=== PATIENT | female | born 1955 | race Asian ===

== ENCOUNTER 2019-03-22 16:50 | Emergency (ER) | payer OTHER, SELFPAY ==
[2019-03-22 16:55] VITALS: BP 134/97; PULSE 71; RESP 16; TEMP 36.6; O2SAT 99
--- NOTE | 2019-03-22 17:05 | W.ED.GENAD ---
Discharge Plan Disposition Patient Disposition: HOME Condition: Improving Discharge Details Chief Complaint: RashLesion Clinical Impression: Shingles Primary Care Provider: Catalina Rivera ED Provider: Haroldo Garcia Home Meds and New Rx's Prescriptions: New valacyclovir 1 gram tablet 1,000 mg PO TID Qty: 20 RF: 0 Continued protandim PO DAILY RF: 0 cholecalciferol (vitamin D3) 5,000 unit capsule 5,000 unit PO DAILY Qty: 90 RF: 0 Discharge Instructions Instructions: Shingles (ED) Additional Instructions: Take the antiviral medication three times a day. RETURN TO THE ER IMMEDIATELY IF YOU DEVELOP ANY FEVERS, WEAKNESS, OR FOR ANY OTHER CONCERNING OR WORSENING SYMPTOMS AT ALL. Medical Decision Making 63-year-old female presents to the emergency department with a vesicular rash on her posterior thigh. This is most consistent with shingles. She will be started on valacyclovir. She was given return precautions and discharge instructions and agrees with the outpatient treatment plan. HPI This patient is a 63-year-old female presents to the emergency department with chief complaint of a rash on her right leg. She noticed it today. Yesterday she noticed some pain in her right posterior lower thigh. No fevers. No other recent illness. The pain is better since she covered it up. However, the rash then presented. She has had shingles in the past. She states it feels similar. General Date/Time Provider Initiated Documentation: 03/22/19 17:04. Related Data Home Medications Medication Instructions Recorded Confirmed cholecalciferol (vitamin D3) 5,000 5,000 unit PO DAILY #90 cap 12/24/18 03/22/19 unit capsule protandim PO DAILY 12/24/18 valacyclovir 1,000 mg PO TID #20 tab 03/22/19 Previous Rx's Medication Instructions Recorded cholecalciferol (vitamin D3) 5,000 5,000 unit PO DAILY #90 cap 12/24/18 unit capsule valacyclovir 1,000 mg PO TID #20 tab 03/22/19 Allergies Allergy/AdvReac Type Severity Reaction Status Date / Time Bleach (Sodium Hypochlorite) Allergy Unknown Unverified 03/22/19 16:57 ciprofloxacin Allergy Unknown Verified 03/22/19 16:57 lisinopril Allergy Unknown Unverified 03/22/19 16:57 lactose AdvReac Unknown Unverified 03/22/19 16:57 General Stated Complaint: RashLesion MICHI: 4 Review of Systems Narrative: Denies any other recent illness or fever. [facility] Medical History Adjustment disorder (Acute) Atrophic vaginitis (Acute) CTS (carpal tunnel syndrome) (Acute) Diabetes mellitus, type II (Chronic) DJD (degenerative joint disease) (Chronic) Essential hypertension (Acute) Female climacteric state (Acute) Mixed hyperlipidemia (Acute) Pure hypercholesterolemia (Acute) Thrombosed external hemorrhoids (Acute) Vitamin D deficiency (Acute) Surgical History History of breast biopsy (Acute) History of cholecystectomy (Chronic) History of dilation and curettage (Acute) History of removal of cyst (Acute) Right Breast x2 Family History Father Heart attack Asthma Diabetes Mother Stroke Hypertension Rheumatoid arthritis Son Asthma only as child Son No problems noted. Brother Heart attack Brother Diabetes Asthma Sister Breast cancer Sister Brain cancer Sister Leukemia Sister Hypertension Hyperlipidemia Social History Smoking/Tobacco Use Status: Never Alcohol Intake: never Drug use: Never Adopted: No Caregiver/Support person: No Foster care: No Household members: friend(s) Housing: other Details: trailer Number of Children: 2 Communication Needs: Corrective Lenses Education Level: college current occupation: RN [employer] What is your relationship status?: Panel score (0-1 are the most socially isolated patients): 1 What type of physical activity do you participate in: aerobic and swimming Frequency: 1-2 times per week Seatbelt use: always Helmet use: Yes Drive intox or ride w/intox bellman driver: No Working smoke detector in home: Yes Fire extinguisher in home: Yes Carbon monox detector in home: Yes Do you feel safe in your relationship?: Yes Victim of physical abuse: No Victim of emotional abuse: No Victim of sexual abuse: No Exam Narrative Exam Narrative: Gen: no acute distress, alert. Lung: no respiratory distress. Neuro: speech normal, no gross motor deficits. Psych: alert and oriented to person, place time, normal affect. Skin: on the posterior thigh, lower, there is a vesicular rash about 2.5 cm in diameter.. Course Vital Signs Vital signs: Vital Signs Temperature 36.6 C 03/22/19 16:55 Pulse 71 03/22/19 16:55 Respiratory Rate 16 03/22/19 16:55 Blood Pressure 134/97 H 03/22/19 16:55 Pulse Oximetry 99 03/22/19 16:55 Temperature 36.6 C 03/22/19 16:55 Temperature Source Skin 03/22/19 16:55 Pulse 71 03/22/19 16:55 Respiratory Rate 16 03/22/19 16:55 Respiratory Effort Non-Labored 03/22/19 16:55 Blood Pressure 134/97 H 03/22/19 16:55 Blood Pressure Position Sitting 03/22/19 16:55 Pulse Oximetry 99 03/22/19 16:55 Oxygen Delivery Method Room Air 03/22/19 16:55 Oxygen Flow Rate 0 03/22/19 16:55 Pain Level 5 03/22/19 16:55
[2019-03-22] MEDS: valACYclovir 500 MG TAB 2000 MG PO (17:17)
== END 2019-03-22 17:21 | disposition home or self-care (01) ==
PROVIDERS: Emergency Provider Emergency Medicine; PCP Student in an Organized Health Care Education/Training Program
DX: B02.9 Zoster without complications (principal); E11.9 Type 2 diabetes mellitus without complications; I10 Essential (primary) hypertension
CPT/HCPCS: 99283

== ENCOUNTER 2019-07-02 10:39 | Outpatient (CLI) | payer OTHER, SELFPAY ==
[2019-07-02 11:15] LABS: HCT 42.6 % (36.0-46.0); HGB 13.8 g/dL (12.0-15.5); Mean Corp. HGB Concentration 32.4 g/dL (32.0-36.0); Mean Corpuscular Hemoglobin 30.2 pg (27.0-33.0); Mean Corpuscular Volume 93.2 fL (80-95); Platelet Count 291 x1000/uL (130-400); RBC 4.57 m/cumm (4.00-5.20); RBC Distribution Width 12.6 % (11.7-14.6); White Blood Cell Count 6.03 k/cumm (4.4-10.8)
[2019-07-02 12:17] LABS: ALT 33 U/L (14-59); AST 18 U/L (15-37); Albumin 3.5 g/dL (3.4-5.0); Alkaline Phosphatase 60 U/L (46-116); Anion Gap 8.2 mmol/L (3-11); BUN 16 mg/dL (7-18); Bilirubin, Total 0.8 mg/dL (0.2-1.0); CO2 29.8 mmol/L (21.0-32.0); Calcium 8.9 mg/dL (8.5-10.1); Calculated LDL 162 mg/dL (<100); Chloride 106 mmol/L (98-107); Cholesterol 223 mg/dL (<200); Glucose 127 mg/dL (74-106); HDL Cholesterol 42 mg/dL (40-60); Sodium 144 mmol/L (136-145); TSH (W/Ref FT4) 1.26 uIU/mL (0.36-3.74); Total Protein 7.1 g/dL (6.4-8.2); Triglyceride 97 mg/dL (<150)
== END 2019-07-02 10:59 ==
PROVIDERS: PCP Student in an Organized Health Care Education/Training Program; Visit Provider Student in an Organized Health Care Education/Training Program
DX: E11.9 Type 2 diabetes mellitus without complications (principal); I10 Essential (primary) hypertension; R53.83 Other fatigue; F32.9 Major depressive disorder, single episode, unspecified; Z13.220 Encounter for screening for lipoid disorders; Z80.6 Family history of leukemia
CPT/HCPCS: 36415; 80053; 80061; 85027; 84443

== ENCOUNTER 2019-07-14 11:03 | Outpatient (REF) | payer OTHER, SELFPAY ==
--- NOTE | 2019-07-13 10:00 | PAPFT_PTH ---
PATIENT: Nina Gregg LOC: [facility] U#:[id number] AGE/SX: 63/F ROOM: RE07/14/[address]: Shiela Oneill : 1955 BED: DIS: 07/14/2019 SPEC #: [id number] RECD: 07/14/19 12:49 STATUS: ANGEL REKervin #: [id number] EAMON: 07/13/19 10:[address]: Shiela Oneill DEPT: [facility] Cytology RECD BY: Quyen Duffy ENTERED: 07/14/19 12:50 SP TYPE: PAPFT OTHR DR: Catalina Rivera, Tissues: 1 - CX/ENDOCX FOR PAP SMEARS Procedures: PAP THIN PREP/UVM Screening HPV DNA PROBE Comments: [id number]
== END 2019-07-14 11:23 ==
LOC: LBN 11:03
PROVIDERS: PCP Student in an Organized Health Care Education/Training Program; Visit Provider Obstetrics & Gynecology Gynecology
DX: Z12.4 Encounter for screening for malignant neoplasm of cervix (principal); Z11.51 Encounter for screening for human papillomavirus (HPV)
CPT/HCPCS: 88142; 87624

== ENCOUNTER 2019-07-23 14:28 | Outpatient (REF) | payer OTHER, SELFPAY ==
[2019-07-23 17:44] LABS: Bilirubin Negative (Negative); Blood Small (Negative); Clarity Clear (Clear); Glucose 250 mg/dL (Negative); Ketones Negative (Negative); Leukocyte Esterase Negative (Negative); Nitrite Negative (Negative); Specific Gravity 1.025 (1.005-1.025); Urobilinogen 0.2 EU/dL (Up TO 0.2); pH 5.5 (5-8)
[2019-07-23 18:04] LABS: Bacteria Few HPF (Negative); C & S Indicated? No/Sq. Contamination; Casts Negative LPF (Negative); Crystals Negative HPF (Negative); Epithelial Cells Moderate HPF (Negative); Mucus Negative (Negative); RBC Negative HPF (0-2); WBC Negative HPF (0-5)
== END 2019-07-23 14:48 ==
LOC: LBN 14:28
PROVIDERS: PCP Student in an Organized Health Care Education/Training Program; Visit Provider Nurse Practitioner Gerontology
DX: R32 Unspecified urinary incontinence (principal)
CPT/HCPCS: 81003; 81015

== ENCOUNTER 2019-08-05 02:13 | Outpatient (CLI) | payer OTHER, SELFPAY ==
--- NOTE | 2019-08-05 12:30 | DI.CT_ITS ---
EXAM: CT ABDOMEN PELVIS WO/W CLINICAL HISTORY: microscopic hem and flank pain COMPARISON: No exams were available for comparison FINDINGS: CT examination of the abdomen and pelvis was performed utilizing CT urogram protocol. Patient reporte lupe has a history of microscopic hematuria and flank pain. Noncontrast CT shows tiny nonobstructing left renal calculus. Images obtained through the lung bases are unremarkable. There is a peripheral nodular enhancing lesi on of right hepatic lobe near the dome of the liver measuring up to about 16 millimeters in diameter and this has the appearance of a hemangioma. Note is also made of a slightly heterogeneous, well-circ umscribed mass of the inferior medial portion of the right hepatic lobe measuring up to about 14 mill imeters in diameter, this shows intermediate attenuation of roughly 35 Hounsfield units and does not appear to enhance significantly. Findings as described are indeterminate, solid hepatic neoplasm not excluded. Findings are not suggestive of hemangioma. Additional evaluation with hepatic protocol MRI recommended for further evaluation. Spleen is unremarkable in appearance. Pancreas appears normal. Gallbladder appears to have been surgi marlin removed. No biliary dilatation. No abdominal or pelvic adenopathy. Small fat containing umbilic al hernia noted. No focal bowel pathology. Prior tubal ligations noted, otherwise arbor end mainspring former structures appe ar intact. Unremarkable appearance of the appendix. No evidence of diverticulitis. Abdominal aorta is of normal diameter and major aortic branches appear intact. Contrast-enhanced imaging shows symmetrical cortical renal enhancement. No evidence of hydronephrosis , ureteral calcification or abnormality of the urinary bladder which is essentially collapsed. IMPRESSION: 1. Incidental finding of indeterminate 14 millimeter right hepatic lobe mass, hepatic protocol MRI r ecommended. 2. Non-obstructing left renal calculus. No other specific abnormality involving the urinary tract.
[2019-08-05] MEDS: Omnipaque 350 MG/ML 100 ML BTL IJ (13:30)
== END 2019-08-05 02:33 ==
PROVIDERS: PCP Student in an Organized Health Care Education/Training Program; Visit Provider Nurse Practitioner Gerontology
DX: R31.29 Other microscopic hematuria (principal); R10.32 Left lower quadrant pain; K76.89 Other specified diseases of liver; N20.0 Calculus of kidney; K42.9 Umbilical hernia without obstruction or gangrene
CPT/HCPCS: 74178; J3490

== ENCOUNTER 2019-08-13 01:05 | Outpatient (CLI) | payer OTHER, SELFPAY ==
--- NOTE | 2019-08-13 | DI.US_ITS ---
EXAM: MG MAMMO DIAGNOSTIC BI and U/S left breast CLINICAL HISTORY: LT LATERAL BREAST 1 CM FIRM MOBILE NODULE. COMPARISON: Priors available for comparison. TECHNIQUE: Craniocaudal and mediolateral oblique Full Field Digital Mammography views of the bilater al breast with Computer Aided Diagnosis followed by Tomosynthesis and left breast ultrasound. FINDINGS: Mammography/Tomosynthesis: Masses/Architectural Distortion: No suspicious nodules present. Stable nodular densities in the oute r left breast. Microcalcifications: No suspicious pleomorphic-type are seen. Skin Thickening/Nipple Retraction: None. Left breast US: Echotexture: Normal appearance of the glandular tissue. Shadowing: No suspicious foci. Cyst: None. Solid lesions: 2 small lymph nodes seen in the 3 o'clock position of the left breast. They measure 6 x 3 x 5 mm and 4 x 3 x 3 mm. No suspicious solid lesions are identified sonographically. Ductal dilation: None. IMPRESSION: 1. No evidence of malignancy is noted. 2. Unless there is more urgent need, follow-up screening mammography is recommended, as per [place] [employer] guidelines. BI-RADS Cat 2 - Benign Findings Breast Density - Category C - Heterogeneously dense The findings were discussed with the patient on the date of the examination. The mammogram demonstrates the patient's breast tissue is dense. Dense breast tissue is very common a nd is not abnormal but dense breast tissue can make it harder to find cancer on a mammogram. Also, de nse breast tissue may increase their breast cancer risk. This information about the result of the [facility] mogram report was provided to the patient to raise their awareness. Use this report when you speak wi th the patient about their risks for breast cancer, which includes their family history. At that time , you may recommend for more screening tests (Ultrasound or MRI) as they might be useful based on the ir risk. A negative radiographic report should not delay biopsy if a dominant or clinically suspicious mass is present. Up to ten percent of cancers are not identified on mammography. A negative report may reinforce clinical impression. Adenosis and dense breasts may obscure an underlying neoplasm. False positive reports average 6 to 10%. Patient will receive a letter notifying them of these results.
== END 2019-08-13 01:25 ==
PROVIDERS: PCP Student in an Organized Health Care Education/Training Program; Visit Provider Obstetrics & Gynecology Gynecology
DX: R59.0 Localized enlarged lymph nodes; N63.21 Unspecified lump in the left breast, upper outer quadrant
CPT/HCPCS: 76642; 77062; 77066; G0279

== ENCOUNTER 2019-08-28 02:01 | Outpatient (CLI) | payer OTHER, SELFPAY ==
--- NOTE | 2019-08-28 06:22 | DI.MRI_ITS ---
EXAM: MR ABDOMEN WO/W CLINICAL HISTORY: hepatic lesion, k76.9. TECHNIQUE: Multiplanar multisequence MRI was performed. COMPARISON: CT ABDOMEN PELVIS WO/W from 08/05/2019 FINDINGS: MR examination of the upper abdomen was performed utilizing pre and post contrast imaging including m ulti phasic post contrast vibe imaging. Kidneys are unremarkable in appearance. Pancreas shows normal appearance. No biliary dilatation. S pleen appears normal. No retroperitoneal adenopathy. Adrenals appear normal. Recent CT showed a 16 millimeter in diameter mass of the right hepatic lobe at the dome of the liver consistent with hemangioma. CT also showed a 14 millimeter in diameter right lobe hepatic mass infer iorly adjacent to the kidney. This showed intermediate attenuation and neoplastic disease was not ex cluded on the basis of the CT. On today's examination, the 16 millimeter in diameter lesion of the dome of the liver shows character istic high signal on T2 weighted imaging and early filling with no washout on contrast enhanced scans . There is a 11 millimeter in diameter high signal lesion also seen with early enhancement located enma cent to the IVC in the right hepatic lobe which was not seen on CT. Enhancement characteristics are consistent with hemangioma. The 14 millimeter in diameter indeterminate lesion is of very high signal on T2 weighted images. Thi s shows no enhancement on post contrast imaging, multiphasic. This may represent hemorrhagic hepatic cyst. Neoplastic disease unlikely. IMPRESSION: Findings as described above are consistent with benign disease for multiple hepatic lesions as descri bed. Follow-up hepatic CT recommended in 6-12 months to document stability of the 14 millimeter infe rior right lobe hepatic lesion. DATA REPOSITORY:
[2019-08-28] MEDS: Normal Saline Flush 10 ML SYR IVP (08:23)
[2019-08-28] MEDS: Gadoterate meglumine 20 ML VIAL 13 ML IVP (08:25)
== END 2019-08-28 02:21 ==
PROVIDERS: PCP Student in an Organized Health Care Education/Training Program; Visit Provider Student in an Organized Health Care Education/Training Program
DX: K76.89 Other specified diseases of liver (principal); D18.03 Hemangioma of intra-abdominal structures
CPT/HCPCS: 74183

== ENCOUNTER 2019-10-20 05:16 | Outpatient (CLI) | payer OTHER, SELFPAY ==
[2019-10-20 11:43] LABS: Anion Gap 3.7 mmol/L (3-11); BUN 14 mg/dL (7-18); CO2 31.3 mmol/L (21.0-32.0); CREATININE 0.81 mg/dL (0.55-1.02); Calcium 8.7 mg/dL (8.5-10.1); Chloride 105 mmol/L (98-107); Glucose 123 mg/dL (74-106); Potassium 3.9 mmol/L (3.5-5.1); Sodium 140 mmol/L (136-145)
[2019-10-22 05:04] LABS: Vitamin D 25 Total 42.5 ng/ml (30-100)
== END 2019-10-20 05:36 ==
PROVIDERS: PCP Student in an Organized Health Care Education/Training Program; Visit Provider Student in an Organized Health Care Education/Training Program
DX: I10 Essential (primary) hypertension (principal); E11.9 Type 2 diabetes mellitus without complications; E55.9 Vitamin D deficiency, unspecified
CPT/HCPCS: 36415; 80048; 82306

== ENCOUNTER 2020-02-02 03:31 | Outpatient (CLI) | payer OTHER, SELFPAY ==
[2020-02-02 12:04] LABS: Anion Gap 4.4 mmol/L (3-11); BUN 14 mg/dL (7-18); CO2 31.6 mmol/L (21.0-32.0); CREATININE 0.77 mg/dL (0.55-1.02); Calcium 9.4 mg/dL (8.5-10.1); Calculated LDL 152 mg/dL (<100); Chloride 105 mmol/L (98-107); Cholesterol 223 mg/dL (<200); Glucose 112 mg/dL (74-106); HDL Cholesterol 44 mg/dL (40-60); Magnesium 2.1 mg/dL (1.8-2.4); Potassium 4.1 mmol/L (3.5-5.1); Sodium 141 mmol/L (136-145); Triglyceride 138 mg/dL (<150)
[2020-02-04 05:39] LABS: Vitamin D 25 Total 41.3 ng/ml (30-100)
== END 2020-02-02 03:51 ==
PROVIDERS: PCP Student in an Organized Health Care Education/Training Program; Visit Provider Student in an Organized Health Care Education/Training Program
DX: I10 Essential (primary) hypertension (principal); E55.9 Vitamin D deficiency, unspecified; E11.9 Type 2 diabetes mellitus without complications; E86.0 Dehydration
CPT/HCPCS: 36415; 80048; 80061; 82306; 83735

== ENCOUNTER 2020-08-01 19:47 | Outpatient (REF) | payer OTHER, SELFPAY ==
[2020-08-01 21:11] LABS: Bilirubin Negative (Negative); Blood Small (Negative); Clarity Clear (Clear); Glucose Negative (Negative); Ketones Negative (Negative); Leukocyte Esterase Negative (Negative); Nitrite Negative (Negative); Specific Gravity >= 1.030 (1.005-1.025); Urobilinogen 0.2 EU/dL (Up TO 0.2); pH 5.5 (5-8)
[2020-08-01 21:18] LABS: Epithelial Cells Rare HPF (Negative); WBC Negative HPF (0-5)
[2020-08-01 21:19] LABS: Bacteria Negative HPF (Negative); C & S Indicated? No; Casts Negative LPF (Negative); Crystals Negative HPF (Negative); Mucus Trace (Negative)
== END 2020-08-01 19:48 | disposition home or self-care (01) ==
LOC: LBN 19:47
PROVIDERS: PCP Student in an Organized Health Care Education/Training Program; Visit Provider Student in an Organized Health Care Education/Training Program
DX: R35.0 Frequency of micturition (principal)
CPT/HCPCS: 81003; 81015

== ENCOUNTER 2020-08-12 09:23 | Outpatient (CLI) | payer OTHER, SELFPAY ==
[2020-08-13 13:24] LABS: COVID-19 RT-PCR UVMMC Result Negative (Negative)
== END 2020-08-12 09:24 | disposition home or self-care (01) ==
LOC: LBO 09:25
PROVIDERS: PCP Student in an Organized Health Care Education/Training Program; Visit Provider Family Medicine
DX: Z20.822 Contact with and (suspected) exposure to COVID-19 (principal)
CPT/HCPCS: U0003

== ENCOUNTER 2021-02-20 04:03 | Outpatient (REF) | payer SELFPAY ==
[2021-02-20 12:32] LABS: Anion Gap 2.8 mmol/L (3-11); BUN 13 mg/dL (7-18); CO2 33.2 mmol/L (21.0-32.0); CREATININE 0.8 mg/dL (0.55-1.02); Calcium 8.5 mg/dL (8.5-10.1); Chloride 108 mmol/L (98-107); Glucose 135 mg/dL (74-106); Potassium 4.4 mmol/L (3.5-5.1); Sodium 144 mmol/L (136-145)
[2021-02-21 10:58] LABS: Varicella IgG Antibody Positive (See Note)
[2021-02-21 11:03] LABS: Measles IgG Antibody Positive (See Note); Mumps Antibody IgG Positive (See Note); Rubella IgG Ab (UVM) Positive (See Note)
[2021-02-22 13:48] LABS: TB Interpretation Positive (Negative); TB1 Ag minus Nil 0.43 IU/ml; TB2 Ag minus Nil 0.44 IU/mL
== END 2021-02-20 04:04 | disposition home or self-care (01) ==
LOC: LBO 04:03
PROVIDERS: Nurse Practitioner Family; PCP Student in an Organized Health Care Education/Training Program; Visit Provider Student in an Organized Health Care Education/Training Program
DX: Z02.1 Encounter for pre-employment examination; Z79.1 Long term (current) use of non-steroidal anti-inflammatories (NSAID)
CPT/HCPCS: 36415; 80048; 86787; 86480; 86735; 86762; 86765

== ENCOUNTER 2021-03-01 02:19 | Outpatient (CLI) | payer OTHER, SELFPAY ==
--- NOTE | 2021-03-01 09:30 | DI.RAD_ITS ---
Exam(s) XR CHEST 2V PA LATERAL EXAM: XR CHEST 2V PA LATERAL CLINICAL HISTORY: positive Quanteferon,R76.12. TECHNIQUE: 2D digital imaging was performed. COMPARISON: No exams were available for comparison FINDINGS: Heart size is normal. The mediastinum is not widened. Right lung is clear. There is platelike atelectasis in the left infrahilar region. No pleural effusions. No pulmonary edema. No pneumothorax. IMPRESSION: There is subsegmental platelike atelectasis in the left infrahilar region. No other pulmonary findin gs and no pleural effusions. DATA REPOSITORY: RADIATION DOSE DELIVERED:
== END 2021-03-01 02:39 ==
PROVIDERS: PCP Student in an Organized Health Care Education/Training Program; Visit Provider Nurse Practitioner Family
DX: R76.12 Nonspecific reaction to cell mediated immunity measurement of gamma interferon antigen response without active tuberculosis (principal); J98.11 Atelectasis
CPT/HCPCS: 71046

== ENCOUNTER 2021-03-15 04:46 | Outpatient (CLI) | payer OTHER, SELFPAY ==
[2021-03-16 11:05] LABS: Syphilis Serology (RPR) Negative (Negative)
[2021-03-16 15:25] LABS: Chlamydia Result Negative (Negative); GC Result Negative (Negative)
== END 2021-03-15 04:47 | disposition home or self-care (01) ==
LOC: LBO 04:46
PROVIDERS: PCP Student in an Organized Health Care Education/Training Program; Visit Provider Student in an Organized Health Care Education/Training Program
DX: Z11.3 Encounter for screening for infections with a predominantly sexual mode of transmission (principal)
CPT/HCPCS: 36415; 87491; 87591; 86592

== ENCOUNTER 2021-04-27 15:07 | Outpatient (REF) | payer OTHER, SELFPAY ==
[2021-04-27 17:29] LABS: Bilirubin Negative (Negative); Blood Small (Negative); Clarity Clear (Clear); Glucose 100 mg/dL (Negative); Ketones Negative (Negative); Leukocyte Esterase Negative (Negative); Nitrite Negative (Negative); Specific Gravity 1.025 (1.005-1.025); Urobilinogen 0.2 EU/dL (Up TO 0.2)
[2021-04-27 17:36] LABS: Bacteria Few HPF (Negative); Crystals Negative HPF (Negative); Epithelial Cells Moderate HPF (Negative)
[2021-04-27 17:37] LABS: C & S Indicated? No/Sq. Contamination; Mucus Negative (Negative)
== END 2021-04-27 15:08 | disposition home or self-care (01) ==
LOC: LBN 15:07
PROVIDERS: PCP Student in an Organized Health Care Education/Training Program; Visit Provider Nurse Practitioner Gerontology
DX: R30.0 Dysuria (principal)
CPT/HCPCS: 81003; 81015; 87086

== ENCOUNTER 2021-08-05 09:31 | Outpatient (REF) | payer OTHER, SELFPAY ==
[2021-08-05 09:44] LABS: Abs Immature Grans 0.05 10^3/uL (0.0-0.06); Absolute Basophil Count 0.02 10^3/uL (0.0-0.2); Absolute Eosinophil Count 0.24 10^3/uL (0.0-0.7); Absolute Lymphocyte Count 2.28 10^3/uL (1.2-3.4); Absolute Monocyte Count 0.51 10^3/uL (0.1-0.8); Absolute Neutrophil Count 2.07 10^3/uL (1.2-6.7); Basophils % 0.4; Eosinophils % 4.6; HCT 43.6 % (36.0-46.0); HGB 13.7 g/dL (11.2-15.7); Lymphocytes % 44.1; MCH 29.5 pg (27.0-33.0); MCHC 31.4 % (32.0-36.0); MPV 9.2 fL (8.0-11.0); Monocytes % 9.9; Nucleated RBC 0 %; Platelet Count 237 10^3/uL (130-400); RBC 4.64 10^6/uL (3.93-5.22); RDW 12.3 % (11.7-14.6); RDW-SD 42.5 fL; WBC 5.17 10^3/uL (4.4-10.8)
[2021-08-05 09:56] LABS: Hemoglobin A1C 7.5 % (<5.7)
[2021-08-05 10:04] LABS: ALT 46 U/L (14-59); AST 26 U/L (15-37); Albumin 3.3 g/dL (3.4-5.0); Alkaline Phosphatase 73 U/L (46-116); BUN 10 mg/dL (7-18); Bilirubin, Total 0.4 mg/dL (0.2-1.0); CO2 29.8 mmol/L (21.0-32.0); CREATININE 0.8 mg/dL (0.55-1.02); Calcium 8.3 mg/dL (8.5-10.1); Glucose 133 mg/dL (74-106); Total Protein 7.6 g/dL (6.4-8.2)
[2021-08-05 10:34] LABS: Calculated LDL 132 mg/dL (<100); Cholesterol 192 mg/dL (<200); HDL Cholesterol 40 mg/dL (40-60); Triglyceride 104 mg/dL (<150)
[2021-08-05 12:17] LABS: Sodium 142 mmol/L (136-145)
[2021-08-05 12:18] LABS: Anion Gap 6.2 mmol/L (3-11); Chloride 106 mmol/L (98-107); Potassium 3.8 mmol/L (3.5-5.1)
== END 2021-08-05 09:32 | disposition home or self-care (01) ==
LOC: LBO 09:31
PROVIDERS: PCP Student in an Organized Health Care Education/Training Program; Visit Provider Student in an Organized Health Care Education/Training Program
DX: E11.9 Type 2 diabetes mellitus without complications (principal); E78.2 Mixed hyperlipidemia; K76.9 Liver disease, unspecified; Z11.59 Encounter for screening for other viral diseases
CPT/HCPCS: 36415; 80053; 80061; 83036; 85025

== ENCOUNTER 2021-08-05 10:37 | Emergency (ER) | payer OTHER, SELFPAY ==
[2021-08-05 10:43] VITALS: BP 141/86; PULSE 67; RESP 16; TEMP 36.2; O2SAT 100
[2021-08-05 11:04] VITALS: RESP 16
[2021-08-05 11:11] LABS: Abs Immature Grans 0.06 10^3/uL (0.0-0.06); Absolute Basophil Count 0.02 10^3/uL (0.0-0.2); Absolute Eosinophil Count 0.31 10^3/uL (0.0-0.7); Absolute Lymphocyte Count 2.33 10^3/uL (1.2-3.4); Absolute Monocyte Count 0.56 10^3/uL (0.1-0.8); Absolute Neutrophil Count 2.16 10^3/uL (1.2-6.7); Basophils % 0.4; Eosinophils % 5.7; HGB 14.2 g/dL (11.2-15.7); Immature Grans % 1.1; Lymphocytes % 42.8; MCH 29.1 pg (27.0-33.0); MCHC 31.6 % (32.0-36.0); MCV 92.2 fL (80-95); MPV 9.6 fL (8.0-11.0); Monocytes % 10.3; Neutrophils % 39.7; Nucleated RBC 0 %; Platelet Count 240 10^3/uL (130-400); RBC 4.88 10^6/uL (3.93-5.22); RDW 12.4 % (11.7-14.6); RDW-SD 41.8 fL; WBC 5.44 10^3/uL (4.4-10.8)
[2021-08-05 11:51] LABS: ALT 46 U/L (14-59); AST 25 U/L (15-37); Albumin 3.1 g/dL (3.4-5.0); Alkaline Phosphatase 69 U/L (46-116); Anion Gap 5.9 mmol/L (3-11); BUN 10 mg/dL (7-18); Bilirubin, Total 0.4 mg/dL (0.2-1.0); CO2 29.1 mmol/L (21.0-32.0); CREATININE 0.8 mg/dL (0.55-1.02); Calcium 8.3 mg/dL (8.5-10.1); Chloride 108 mmol/L (98-107); Glucose 125 mg/dL (74-106); Potassium 3.7 mmol/L (3.5-5.1); Sodium 143 mmol/L (136-145); Total Protein 7.3 g/dL (6.4-8.2)
--- NOTE | 2021-08-05 12:01 | W.ED.GENAD ---
Discharge Plan Disposition Patient Disposition: HOME Condition: Improving Discharge Details Chief Complaint: GenMedical Clinical Impression: COVID-19 Primary Care Provider: Catalina Rivera ED Provider: Nolan Pederson Home Meds and New Rx's Prescriptions: No Action protandim 1 tab PO DAILY 0RF Rx Instructions: supplement - antioxidant. hydrocortisone [Proctosol HC] 2.5 % cream with perineal applicator 1 applic DC BID-QID PRN (Reason: hemorrhoids) Qty: 28 1RF hydrocortisone acetate 25 mg suppository 25 mg DC BID Qty: 24 2RF loratadine [Claritin Liqui-Gel] 10 mg capsule 10 mg PO DAILY Qty: 90 0RF Hold Instructions: Home Medication placed on hold at Doctor's office (DME) glucometer Qty: 1 0RF Rx Instructions: Test BG QID ([facility]) OneTouch Verio test strips Strip See Rx Instructions .ROUTE .MEDSUPPLY Qty: 300 3RF Rx Instructions: As directed, for A1C goal< 7, E11.65 ([facility]) lancets Misc See Rx Instructions .ROUTE .MEDSUPPLY Qty: 300 3RF Rx Instructions: As directed to check blood glucose four times daily. No insulin. Dispense covered brand. cholecalciferol (vitamin D3) 125 mcg (5,000 unit) capsule 5,000 unit PO DAILY Qty: 90 3RF albuterol sulfate [ProAir HFA] 90 mcg/actuation HFA aerosol inhaler 2 puff inhalation Q6H PRN (Reason: shortness of breath or wheezing) Qty: 8.5 1RF Rx Instructions: Trial daily x 2 weeks metformin 500 mg tablet extended release 24 hr 500 mg PO DAILY Qty: 90 3RF Rx Instructions: Continue, take with meal Paxlovid (EUA) 300 mg (150 mg x 2)-100 mg tablet See Rx Instructions PO .COMPLEX Qty: 15 0RF Rx Instructions: take TWO 150 mg tablets of nirmatrelvir with ONE 100 mg tablet of ritonavir twice daily for 5 days PO acetaminophen 500 mg Tablet 500 mg PO Q6H PRN0RF Discharge Instructions Instructions: COVID-19 (Coronavirus Disease 2019) (ED) Additional Instructions: Please take medication as instructed. Return to the emergency department for any worsening symptoms such as trouble breathing inability to tolerate food uncontrolled diarrhea or other abnormal symptom. Be seen by your primary care doctor as scheduled. Medical Decision Making 65-year-old female history of diabetes, Covid positive yesterday present referred in for reevaluation of electrolytes given electrolyte derangements found on outpatient labs. High clinical suspicion for lab error given reported sodium of 70. Patient is neurologically intact resting comfortably no respiratory distress. Endorses that her breathing symptoms are improving and her diarrhea is also improving. Have sent screening labs including CBC and CMP. If electrolytes are normal will coordinate paxlovid therapy through pharmacy. Likely discharge home. Repeat labs performed here in the emergency department show normal electrolytes. Lab reports that the outpatient labs were a lab error. Pharmacy has come to deliver and educate patient regarding her Paxlovid. Stable for discharge home. Home care instructions and return precautions given HPI General Date/Time Provider Initiated Documentation: 08/05/21 10:39. HPI Narrative: 65-year-old female history of diabetes recently diagnosed with Covid yesterday, referred in by her primary care physician as outpatient labs showed derangement of her electrolytes, patient currently resting comfortably endorses improving shortness of breath and resolving diarrhea. Primary care physician has arranged Paxlovid prescription pending normal blood test Related Data Home Medications Medication Instructions Recorded Confirmed loratadine 10 mg capsule (Claritin 10 mg PO DAILY #90 cap 08/12/19 08/05/21 Liqui-Gel) hydrocortisone 2.5 % topical cream 1 applic DC BID-QID PRN #28 gm 09/24/19 08/05/21 with perineal applicator (Proctosol HC) hydrocortisone acetate 25 mg 25 mg DC BID #24 each 09/24/19 08/05/21 rectal suppository glucometer #1 ea 01/22/20 04/14/21 protandim 1 tab PO DAILY 01/22/20 08/05/21 metformin 500 mg tablet,extended 500 mg PO DAILY #90 tab 02/03/20 08/05/21 release 24 hr albuterol sulfate 90 mcg/actuation 2 puff INHALATION Q6H PRN #8.5 g 04/14/21 08/05/21 aerosol inhaler (ProAir HFA) blood sugar diagnostic (OneTouch #300 ea 04/14/21 04/14/21 Verio test strips) cholecalciferol (vitamin D3) 125 5,000 unit PO DAILY #90 cap 04/14/21 08/05/21 mcg (5,000 unit) capsule lancets #300 ea 04/14/21 04/14/21 nirmatrelvir 300 mg (150 mg x See Rx Instructions PO .COMPLEX 08/04/21 08/05/21 2)-ritonavir 100 mg tablet (EUA) #15 tab (Paxlovid (EUA)) acetaminophen 500 mg tablet 500 mg PO Q6H PRN 08/05/21 08/05/21 Previous Rx's Medication Instructions Recorded loratadine 10 mg capsule (Claritin 10 mg PO DAILY #90 cap 08/12/19 Liqui-Gel) hydrocortisone 2.5 % topical cream 1 applic DC BID-QID PRN #28 gm 09/24/19 with perineal applicator (Proctosol HC) hydrocortisone acetate 25 mg 25 mg DC BID #24 each 09/24/19 rectal suppository glucometer #1 ea 01/22/20 metformin 500 mg tablet,extended 500 mg PO DAILY #90 tab 02/03/20 release 24 hr albuterol sulfate 90 mcg/actuation 2 puff INHALATION Q6H PRN #8.5 g 04/14/21 aerosol inhaler (ProAir HFA) blood sugar diagnostic (OneTouch #300 ea 04/14/21 Verio test strips) cholecalciferol (vitamin D3) 125 5,000 unit PO DAILY #90 cap 04/14/21 mcg (5,000 unit) capsule lancets #300 ea 04/14/21 nirmatrelvir 300 mg (150 mg x See Rx Instructions PO .COMPLEX 08/04/21 2)-ritonavir 100 mg tablet (EUA) #15 tab (Paxlovid (EUA)) Allergies Allergy/AdvReac Type Severity Reaction Status Date / Time Bleach (Sodium Hypochlorite) Allergy Unknown Verified 08/05/21 10:48 ciprofloxacin Allergy Unknown Verified 08/05/21 10:48 lisinopril Allergy Unknown Verified 08/05/21 10:48 lactose AdvReac Unknown Verified 08/05/21 10:48 General Stated Complaint: GenMedical MICHI: 3 Review of Systems Narrative: Review of Systems Constitutional: negative Eyes: negative ENT: negative Cardiovascular: negative Respiratory: Cough Gastrointestinal: Diarrhea : negative Musculoskeletal: negative Skin: negative Neurologic: negative Psych: negative PFSH All Active Problems (Updated 08/05/21 @ 13:07 by Nolan Pederson MD) COVID-19 (Acute) Diabetes mellitus, type II (Chronic) Hx elevated sugars. Trial diet control. 01/2020: A1C today remains at 7.0% .. last checked on 09/24/19. She is ready for Rx. SARS-CoV-2 positive (Acute ~08/02/21) Venereal disease screening (Acute) Syphilis (RPR/Blood), Gonorhea (Urine [ ] ) .. 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 presumed 2' DM. Alcon trial helping (01/2020). Bunion, left foot (Acute) Acute on chronic, raw/red/tender 10/2019 Mixed hyperlipidemia (Acute) Hepatic lesion (Acute) Incidental finding during abd CT (urogram protocol) for Hx micro hematuria. 09/07/2019 MRI of the liver: Imaging consistent with hemangioma. Follow-up CT of liver recommended in 6-12mos. Noncontrast CT: peripheral nodular enhancing lesion of right hepatic lobe near the dome of the liver measuring up to about 16 millimeters in diameter ... appearance of a hemangioma. Note is also made of a slightly heterogeneous, well-circumscribed mass of the inferior medial portion of the right hepatic lobe measuring up to about 14 millimeters in diameter, this shows intermediate attenuation of roughly 35 Hounsfield units and does not appear to enhance significantly. Findings as described are indeterminate, solid hepatic neoplasm not excluded. Findings are not suggestive of hemangioma. Additional evaluation with hepatic protocol MRI recommended for further evaluation. MRI (08/28/19): Findings consistent with benign disease for multiple hepatic lesions as described. Follow-up hepatic CT recommended in 6-12 months to document stability of the 14 millimeter inferior right lobe hepatic lesion. Skin rash (Acute) Mixed stress and urge urinary incontinence (Acute) Hematuria (Acute) Interstitial cystitis (Acute) Mourning (Acute) Bro , 03/2021. Sister () from breast cancer; working to keep mind off sadness. Family in [place]; she is here with room in friend's house. Hallux valgus (acquired), right foot (Acute) 03/11/19-Dr. Blankenship pre-fabricated orthotics Hallux valgus (acquired), left foot (Acute) 03/11/19-. Pre-fabricated orthotics Malignant neoplasm of unspecified lower limb (Acute) 03/11/19-. 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 Bunion pain .. with Hx plantar fasciitis. Vitamin D deficiency (Acute) CTS (carpal tunnel syndrome) (Acute) DJD (degenerative joint disease) (Chronic) Medical History (Updated 08/05/21 @ 13:07 by Nolan Pederson MD) Adjustment disorder Atrophic vaginitis Female climacteric state Thrombosed external hemorrhoids Surgical History History of breast biopsy History of cholecystectomy History of dilation and curettage History of removal of cyst Right Breast x2 Family History Father Heart attack Asthma Diabetes Mother Stroke Hypertension Rheumatoid arthritis Son Asthma only as child Son No problems noted. Brother Heart attack Brother Diabetes Asthma Sister Breast cancer Sister Brain cancer Sister Leukemia Sister Hypertension Hyperlipidemia Social History Smoking/Tobacco Use Status: Never Smoking risk assessment performed?: Yes Alcohol Intake: never Drug use: Never Adopted: No Caregiver/Support person: No Foster care: No Household members: friend(s) Housing: other Details: trailer Number of Children: 2 Communication Needs: Corrective Lenses Education Level: college current occupation: RN [employer] What is your relationship status?: Panel score (0-1 are the most socially isolated patients): 1 What type of physical activity do you participate in: aerobic and swimming Frequency: 1-2 times per week Seatbelt use: always Helmet use: Yes Drive intox or ride w/intox front loader residential driver: No Working smoke detector in home: Yes Fire extinguisher in home: Yes Carbon monox detector in home: Yes Do you feel safe at home: Yes Do you feel safe in your relationship?: Yes Victim of physical abuse: No Victim of emotional abuse: No Victim of sexual abuse: No Additional Social history: Pt has lived in different countries and different states 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 Exam Narrative Exam Narrative: Physical Examination General: alert, awake, cooperative, resting comfortably, no acute distress HEENT: normocephalic, atraumatic; PERRL, EOM intact, conjunctiva normal; no nasal discharge; moist mucous membranes, oral and pharyngeal mucosa normal, tolerating secretions Neck: supple, trachea midline; full ROM Chest: normal to inspection Respiratory: normal respiratory effort, speaking in full sentences, clear to auscultation, no wheezing, rales or rhonchi Cardiac: regular rate, regular rhythm, S1S2 intact, no murmurs rubs or gallops GI: abdomen soft, non-tender, non-distended; no palpable mass or hepatosplenomegaly Skin: no lesions, rashes or trauma appreciated Neuro: AAOx3, normal speech, moving all extremities Psych: Appropriate mood and affect Course Vital Signs Vital signs: Vital Signs Temperature 36.2 C L 08/05/21 10:43 Pulse 67 08/05/21 10:43 Respiratory Rate 16 08/05/21 10:43 Blood Pressure 141/86 H 08/05/21 10:43 Pulse Oximetry 100 08/05/21 10:43 Temperature 36.2 C L 08/05/21 10:43 Pulse 67 08/05/21 10:43 Respiratory Rate 16 08/05/21 11:04 Respiratory Effort 08/05/21 11:04 Respiratory Depth Normal 08/05/21 11:04 Respiratory Pattern Normal 08/05/21 11:04 Blood Pressure 141/86 H 08/05/21 10:43 Blood Pressure Position Sitting 08/05/21 10:43 Pulse Oximetry 100 08/05/21 10:43 Oxygen Delivery Method Room Air 08/05/21 10:43 Oxygen Flow Rate 0 08/05/21 10:43 Pain Level 0 08/05/21 10:43 Lab/Test Results Lab/Test Results: Laboratory Tests Range/Units 08/05/21 08/05/21 11:00 11:00 WBC (4.4-10.8) 10^3/uL 5.44 RBC (3.93-5.22) 10^6/uL 4.88 Hgb (11.2-15.7) g/dL 14.2 Hct (36.0-46.0) % 45.0 MCV (80-95) fL 92.2 MCH (27.0-33.0) pg 29.1 MCHC (32.0-36.0) % 31.6 L RDW (11.7-14.6) % 12.4 Plt Count (130-400) 10^3/uL 240 MPV (8.0-11.0) fL 9.6 Immature Gran % 1.1 Neutrophils % 39.7 Lymphocytes % 42.8 Monocytes % 10.3 Eosinophils % 5.7 Basophils % 0.4 Nucleated RBC % % 0 Absolute Neutrophils (1.2-6.7) 10^3/uL 2.16 Absolute Lymphocytes (1.2-3.4) 10^3/uL 2.33 Absolute Monocytes (0.1-0.8) 10^3/uL 0.56 Absolute Eosinophils (0.0-0.7) 10^3/uL 0.31 Absolute Basophils (0.0-0.2) 10^3/uL 0.02 Sodium Cancelled Potassium Cancelled Chloride Cancelled Carbon Dioxide Cancelled Anion Gap Cancelled BUN Cancelled Creatinine Cancelled Estimated GFR/1.73 m2 Cancelled Glucose Cancelled Calcium Cancelled Total Bilirubin Cancelled AST Cancelled ALT Cancelled Alkaline Phosphatase Cancelled Total Protein Cancelled Albumin Cancelled
== END 2021-08-05 13:17 | disposition home or self-care (01) ==
PROVIDERS: Emergency Provider Emergency Medicine; PCP Student in an Organized Health Care Education/Training Program
DX: U07.1 COVID-19 (principal)
CPT/HCPCS: 36415; 80053; 99283; 85025

== ENCOUNTER 2022-08-20 03:26 | Outpatient (CLI) | payer OTHER, SELFPAY ==
[2022-08-20 07:40] LABS: Anion Gap 10.5 mmol/L (3-11); BUN 14 mg/dL (7-18); CO2 24.5 mmol/L (21.0-32.0); CREATININE 0.8 mg/dL (0.55-1.02); Calcium 9.3 mg/dL (8.5-10.1); Chloride 106 mmol/L (98-107); Estimated GFR 82.23 (mL/min/1.73m2); Glucose 103 mg/dL (74-106); Potassium 3.7 mmol/L (3.5-5.1); Sodium 141 mmol/L (136-145)
== END 2022-08-20 03:27 | disposition home or self-care (01) ==
LOC: LBO 03:27
PROVIDERS: PCP Student in an Organized Health Care Education/Training Program; Visit Provider Student in an Organized Health Care Education/Training Program
DX: I10 Essential (primary) hypertension (principal); E11.9 Type 2 diabetes mellitus without complications
CPT/HCPCS: 80048

== ENCOUNTER 2022-08-24 00:24 | Outpatient (CLI) | payer OTHER, SELFPAY ==
--- NOTE | 2022-08-24 08:00 | DI.MRI_ITS ---
Exam(s) MR BRAIN ORBIT FACE NECK WO/W EXAM: MR BRAIN ORBIT FACE NECK WO/W CLINICAL HISTORY: eval probable meningioma;also eval tongue,neck,R93.89 TECHNIQUE: Multiplanar multisequence MRI of the brain was performed. CONTRAST MATERIAL: IV Contrast: 14 mL of Dotarem contrast administered. COMPARISON: CT CT SOFT TISSUE NECK W CONTRAST from 03/02/2022 FINDINGS: The examination is limited due to patient motion artifact. VENTRICLES AND EXTRA AXIAL SPACES: Normal in size and morphology for the patient's age. HEMORRHAGE: None. CEREBRAL PARENCHYMA: No focus of restricted diffusion to suggest acute infarct. No space-occupying le vandana identified. There are several areas of hyperintense signal seen in the white matter on the FLAIR and T2 weighted images likely reflecting small vessel ischemic disease. MIDLINE SHIFT: None. BRAINSTEM/CEREBELLUM: Normal. CALVARIUM: Normal. ENHANCEMENT: There is a homogeneously enhancing extra-axial 1.0 x 1.2 cm well-circumscribed mass at t he lateral aspect of the right middle cranial fossa. This is most consistent with a meningioma. No other intracranial enhancing lesions are identified. VISUALIZED PARANASAL SINUSES/MASTOIDS: Clear. [place]THLO[place]: Normal flow void. PITUITARY GLAND: Unremarkable. OTHER FINDINGS: Visualized paranasal sinuses: Within normal limits. Nasopharynx: Within normal limits. Oropharynx: Within normal limits. There is symmetric tissue seen in the base of the tongue posteriorl y likely reflecting lymphoid tissue. It appears symmetric and no discrete or abnormal enhancement is seen. Hypopharynx: Within normal limits. Larynx: Within normal limits. Retropharyngeal space: Within normal limits. Parotids/submandibular: Within normal limits. Thyroid gland: Within normal limits. Lymphadenopathy: There is scattered lymph nodes seen along the level one to level three all measurin g less than 8 mm in short axis diameter which are physiologic in nature. Trachea: Within normal limits. Lung apices: Within normal limits. Bones: Within normal limits for the patient's age. There is a left paracentral disc herniation at C5- C6. No significant central spinal canal or neural foraminal stenosis results. Carotids/Jugular: Within normal limits. Soft tissues: There is a 1.4 x 1.3 cm lesion anterior to the right sternocleidomastoid muscle an inf erior to the right parotid gland. It is isointense to muscle on the T1 and hyperintense on the T2 we ighted images. There is a layering debris which is hypointense on both T1 and T2 weighted images. T here is no enhancement following contrast administration. IMPRESSION: 1. 1.0 x 1.2 cm homogeneously enhancing well-circumscribed extra-axial mass in the right middle crani al fossa likely reflecting a meningioma. 2. 1.4 x 1.3 cm lesion in the soft tissues anterior to the right sternocleidomastoid muscle. This co rresponds to the finding on CT scan. Signal characteristics are most suggestive of cyst with layerin g debris. No enhancement is seen. 3. Symmetric T2 hyperintense tissue at the base of the tongue isointense to the other lymphoid tissue in the neck. This likely reflects lymphoid tissue. No suspicious enhancement or solid masses ident ified. 4. If further evaluation of these cyst in the right neck is warranted aspiration may be obtained. If further evaluation of the tissue of the base of the tongue is warranted, direct visualization should be considered. DATA REPOSITORY:
[2022-08-24] MEDS: Gadoterate meglumine 20 ML VIAL IVP (14:43)
[2022-08-24] MEDS: Normal Saline Flush 10 ML SYR IVP (14:44)
== END 2022-08-24 00:44 ==
LOC: DI 00:25
PROVIDERS: PCP Student in an Organized Health Care Education/Training Program; Visit Provider Student in an Organized Health Care Education/Training Program
DX: G93.9 Disorder of brain, unspecified (principal); K14.8 Other diseases of tongue; R22.1 Localized swelling, mass and lump, neck; R93.0 Abnormal findings on diagnostic imaging of skull and head, not elsewhere classified; R93.89 Abnormal findings on diagnostic imaging of other specified body structures
CPT/HCPCS: 70553; 70543

== ENCOUNTER 2022-08-31 00:17 | Outpatient (CLI) | payer OTHER, SELFPAY ==
--- NOTE | 2022-08-31 07:45 | DI.DEXA_ITS ---
Exam(s) XR DEXA BONE DENSITY W/WO ZARA EXAM: XR DEXA BONE DENSITY W/WO ZARA CLINICAL HISTORY: vit d deficiency,at risk for osteoporosis,eval bone density,e55.9 TECHNIQUE: [employer] C densitometer analysis of left hip, lumbar spine and left forearm. Lat eral survey image of the thoracic and lumbar spine. COMPARISON: No exams were available for comparison FINDINGS: Lateral view of the thoracic and lumbar spine shows no evidence of compression fractures. Bone mineral density measurements of the lumbar spine correspond to a total T-score of -1.3, in the osteopenic range. Bone mineral density measurements of the left hip correspond to a total T-score of 0.0. The femoral neck T-score is -0.5 in the normal range.. The left forearm bone mineral density measurements correspond to a T-score of the distal 3rd of -0.4 , in the normal range.. IMPRESSION: Osteopenia of the lumbar spine. Normal bone mineral density of the left hip and forearm.
== END 2022-08-31 00:37 ==
LOC: DI 00:17
PROVIDERS: PCP Student in an Organized Health Care Education/Training Program; Visit Provider Student in an Organized Health Care Education/Training Program
DX: E55.9 Vitamin D deficiency, unspecified (principal); K76.9 Liver disease, unspecified; N39.46 Mixed incontinence; Z91.89 Other specified personal risk factors, not elsewhere classified
CPT/HCPCS: 77080

== ENCOUNTER 2022-11-08 06:28 | Outpatient (CLI) | payer OTHER, SELFPAY ==
[2022-11-08 07:30] LABS: Anion Gap 6.7 mmol/L (3-11); BUN 14 mg/dL (7-18); CO2 28.3 mmol/L (21.0-32.0); CREATININE 0.8 mg/dL (0.55-1.02); Calcium 8.9 mg/dL (8.5-10.1); Chloride 106 mmol/L (98-107); Estimated GFR 81.72 (mL/min/1.73m2); Glucose 113 mg/dL (74-106); Potassium 3.7 mmol/L (3.5-5.1); Sodium 141 mmol/L (136-145)
== END 2022-11-08 06:29 | disposition home or self-care (01) ==
LOC: LBO 06:34
PROVIDERS: PCP Student in an Organized Health Care Education/Training Program; Visit Provider Student in an Organized Health Care Education/Training Program
DX: I10 Essential (primary) hypertension (principal); E11.9 Type 2 diabetes mellitus without complications; G93.89 Other specified disorders of brain
CPT/HCPCS: 36415; 80048

== ENCOUNTER → 2023-02-20 02:10 | Outpatient (CLI) | payer OTHER, SELFPAY ==
--- NOTE | 2023-02-20 09:20 | DI.RAD_ITS ---
Exam(s) XR FOOT LT COMPLETE XR FOOT RT COMPLETE EXAM: XR FOOT RT COMPLETE CLINICAL HISTORY: Painful rt foot bunion,hallux valgus,m79.671,m20.11. TECHNIQUE: 2D digital imaging was performed. Three views of both feet. COMPARISON: CR XR FOOT LT COMPLETE from 02/20/2023 FINDINGS: BONES: No acute fracture is present. No bony destructive lesion is seen. Bilateral heel spurs. JOINTS: No dislocation present. Mild bilateral 1st metatarsal varus and hallux valgus. No significa nt degenerative changes. SOFT TISSUE: Normal. IMPRESSION: Symmetric bilateral mild hallux valgus and heel spurs. DATA REPOSITORY: RADIATION DOSE DELIVERED:
== END ==
PROVIDERS: PCP Student in an Organized Health Care Education/Training Program; Visit Provider Podiatrist
DX: M20.12 Hallux valgus (acquired), left foot (principal); M79.672 Pain in left foot; M20.11 Hallux valgus (acquired), right foot; M79.671 Pain in right foot
CPT/HCPCS: 73630

== ENCOUNTER 2023-03-11 03:42 | Outpatient (CLI) | payer OTHER, SELFPAY ==
[2023-03-11 14:19] LABS: Abs Immature Grans 0.07 10^3/uL (0.0-0.06); Absolute Basophil Count 0.04 10^3/uL (0.0-0.2); Absolute Eosinophil Count 0.15 10^3/uL (0.0-0.7); Absolute Monocyte Count 0.53 10^3/uL (0.1-0.8); Absolute Neutrophil Count 5.23 10^3/uL (1.2-6.7); Basophils % 0.5; Eosinophils % 1.8; HCT 45.3 % (36.0-46.0); HGB 14.7 g/dL (11.2-15.7); Immature Grans % 0.9; Lymphocytes % 26.8; MCH 29.5 pg (27.0-33.0); MCHC 32.5 % (32.0-36.0); MCV 91 fL (80-95); Monocytes % 6.4; Neutrophils % 63.6; Platelet Count 270 10^3/uL (130-400); RBC 4.98 10^6/uL (3.93-5.22); RDW 12.7 % (11.7-14.6); RDW-SD 42.1 fL; WBC 8.22 10^3/uL (4.4-10.8)
[2023-03-11 14:40] LABS: ALT 27 U/L (14-59); AST 14 U/L (15-37); Albumin 3.1 g/dL (3.4-5.0); Alkaline Phosphatase 63 U/L (46-116); Anion Gap 7.3 mmol/L (3-11); BUN 15 mg/dL (7-18); Bilirubin, Direct 0.1 mg/dL (0.0-0.2); Bilirubin, Total 0.3 mg/dL (0.2-1.0); CO2 27.7 mmol/L (21.0-32.0); CREATININE 0.9 mg/dL (0.55-1.02); Chloride 106 mmol/L (98-107); Estimated GFR 70.95 (mL/min/1.73m2); Glucose 144 mg/dL (74-106); Potassium 3.5 mmol/L (3.5-5.1); Sodium 141 mmol/L (136-145); Total Protein 7.4 g/dL (6.4-8.2)
[2023-03-11 15:14] LABS: Folate > 20.0 ng/mL (8.6-20.0)
[2023-03-11 15:21] LABS: Calculated LDL 126 mg/dL (<100); Cholesterol 220 mg/dL (<200); HDL Cholesterol 44 mg/dL (40-60); Triglyceride 251 mg/dL (<150); Vitamin B12 407 pg/mL (193-986)
[2023-03-11 15:22] LABS: Vitamin D 25 Total 29.5 ng/mL (30-100)
== END 2023-03-11 03:43 | disposition home or self-care (01) ==
LOC: LBO 03:42
PROVIDERS: PCP Student in an Organized Health Care Education/Training Program; Referring Provider Student in an Organized Health Care Education/Training Program; Visit Provider Student in an Organized Health Care Education/Training Program
DX: E11.9 Type 2 diabetes mellitus without complications (principal); E55.9 Vitamin D deficiency, unspecified; E86.0 Dehydration; I10 Essential (primary) hypertension; Z91.89 Other specified personal risk factors, not elsewhere classified; G62.9 Polyneuropathy, unspecified; M25.511 Pain in right shoulder; Z13.220 Encounter for screening for lipoid disorders
CPT/HCPCS: 36415; 80048; 80061; 80076; 82306; 82607; 82746; 85025

== ENCOUNTER → 2023-04-24 01:17 | Outpatient (CLI) | payer OTHER, SELFPAY ==
--- NOTE | 2023-04-24 15:35 | DI.MAMMO_ITS ---
Exam(s) MAMMO SCREENING EXAM: MAMMO SCREENING CLINICAL HISTORY: screening,Z12.39. TECHNIQUE: Bilateral full field digital CC and MLO mammographic images were obtained with 3D tomosyn thesis and utilizing computer aided detection (CAD). COMPARISON: Prior mammograms dating back to 2013 were reviewed. FINDINGS: The lateral aspect of the left breast there are 2 small benign-appearing nodules which are unchanged from prior mammograms and therefore benign. In left breast on the MLO view there is an asymmetric density-nodular density measuring approximately 1.7 by 1.2 cm located approximately 6 cm in from the nipple on the MLO view. Spot compression view and ultrasound recommended. No new obvious right breast findings. No malignant-appearing microcalcification groups in either javi ast. There is no significant architectural distortion nor skin thickening-retraction. IMPRESSION: There is a 1.7 x 1.2 cm nodular density in the left breast located 6 cm in from the nipple towards th e upper outer quadrant. Spot compression view and ultrasound recommended. BI-RADS Category 0 - Assessment Incomplete: Need additional imaging evaluation Breast Density - Category C - Heterogeneously dense Breast density Category C or D implies that the patient has dense breast tissue. Dense breast tissue can make it harder to find cancer on a mammogram. Dense breast tissue is also associated with an incr eased risk of breast cancer. This information about the result of the mammogram report was provided to the patient to raise their awareness. Use this report when you speak with the patient about their risks for breast cancer, which includes their family history. At that time, you may recommend additional screening tests (Ultrasoun d or MRI) as these tests may add significant information. A negative radiographic report should not delay biopsy if a dominant or clinically suspicious mass is present. Up to ten percent of cancers are not identified on mammography. A negative report may reinforce clinical impression. Adenosis and dense breasts may obscure an underlying neoplasm. False positive reports average 6 to 10%. Patient will receive a letter notifying them of these results.
== END ==
PROVIDERS: PCP Student in an Organized Health Care Education/Training Program; Visit Provider Student in an Organized Health Care Education/Training Program
DX: Z12.31 Encounter for screening mammogram for malignant neoplasm of breast (principal)
CPT/HCPCS: 77063; 77067

== ENCOUNTER → 2023-05-01 02:33 | Outpatient (CLI) | payer OTHER, SELFPAY ==
--- NOTE | 2023-05-01 | DI.US_ITS ---
Exam(s) MG MAMMO SCREEN CALL BACK UNI US BREAST LT LIMITED EXAM: MG MAMMO SCREEN CALL BACK UNI CLINICAL HISTORY: NODULAR DENSITY LEFT BREAST UPPER OUTER QUAD R92.8 ABNL MAMMO. TECHNIQUE: Craniocaudal and mediolateral oblique spot compression digital Mammography views of the l eft breast followed by Tomosynthesis and left breast ultrasound. COMPARISON: MG MAMMOGRAM SCREENING-BILATERAL from 08/07/2016 MG MAMMOGRAM SCREENING-BILATERAL from 08/12/2017 MG MG MAMMO DIAGNOSTIC BI from 08/13/2019 MG MA BREAST SCREENING TAI BILATERAL from 02/15/2022 MG MG MAMMO SCREENING from 04/24/2023 US US BREAST LT LIMITED from 05/01/2023 FINDINGS: Mammography/Tomosynthesis: Masses/Architectural Distortion: None. Dense tissue in superior left breast. Microcalcifictions: No suspicious pleomorphic-type are seen. Skin Thickening/Nipple Retraction: None. Left breast US: Echotexture: Normal appearance of the glandular tissue. Shadowing: No suspicious foci. Cyst: 3 millimeter cyst 12 o'clock position 2 cm from the nipple. 3 millimeters cyst 1 o'clock posit ion 1 cm from the nipple. 3 millimeters cyst 3 o'clock position 3 cm from the nipple. 6 x 3 by 5 mi llimeter lymph node seen in the 3 o'clock position 3 cm from the nipple. Solid lesions: None seen. Ductal dilation: None. IMPRESSION: 1. No evidence of malignancy is noted. 2. Six-month follow-up left mammogram and ultrasound recommended. 3. The findings were discussed with the patient on the date of the examination. BI-RADS Category 3 - 6 month - Probably Benign Finding: Recommend follow-up mammography in 6 months Breast Density - Category C - Heterogeneously dense A mammogram that demonstrates density of C or D indicates the patient's breast tissue is dense. Dense breast tissue is very common and is not abnormal, but dense breast tissue can make it harder to find cancer on a mammogram. Also, dense breast tissue may increase their breast cancer risk. This informa tion about the result of the mammogram report was provided to the patient to raise their awareness. U se this report when you speak with the patient about their risks for breast cancer, which includes th eir family history. At that time, you may recommend for more screening tests (Ultrasound or MRI) as t hey might be useful based on their risk. A negative radiographic report should not delay biopsy if a dominant or clinically suspicious mass is present. Up to ten percent of cancers are not identified on mammography. A negative report may reinforce clinical impression. Adenosis and dense breasts may obscure an underlying neoplasm. False positive reports average 6 to 10%. Patient will receive a letter notifying them of these results.
== END ==
PROVIDERS: PCP Student in an Organized Health Care Education/Training Program; Visit Provider Student in an Organized Health Care Education/Training Program
DX: N60.02 Solitary cyst of left breast (principal); Z12.31 Encounter for screening mammogram for malignant neoplasm of breast
CPT/HCPCS: 76642; 77063; 77067

== ENCOUNTER → 2023-11-05 01:58 | Outpatient (CLI) | payer OTHER, SELFPAY ==
--- NOTE | 2023-11-05 07:30 | DI.US_ITS ---
Exam(s) US BREAST LT COMPLETE MG MAMMO DIAGNOSTIC UNI EXAM: MG MAMMO DIAGNOSTIC UNI COMPLETE LEFT BREAST ULTRASOUND CLINICAL HISTORY: 6 MO F/U, F/U ABNL LT BREAST, R92.8. TECHNIQUE: Unilateral LEFT BREAST spot mammographic images were obtained with 3D tomosynthesis techn ique and utilizing computer aided detection (CAD). COMPLETE LEFT BREAST ULTRASOUND WAS PERFORMED, including all 4 quadrants as well as the axillary jb on. COMPARISON: Prior mammograms were reviewed, as was prior ultrasound of April 2023. FINDINGS: DIAGNOSTIC LEFT BREAST MAMMOGRAM: Additional views performed today are equivocal. However, when reviewing multiple prior mammograms fro m outside institutions the asymmetric density described on the recent study appears to have been pres ent form numerous years. Two smaller mammographically visible nodule seen laterally in the breast are also unchanged from [facility] prior mammograms. COMPLETE LEFT BREAST ULTRASOUND: At the 12 o'clock position there is a 5 x 3 millimeter microcyst. At the 1 o'clock position there is a round 3 millimeter nodule which is probably a microcyst. At 3 o'clock position there is a wider than taller 4 x 3 millimeter probable microcyst. Also at 3 o'clock position is a wider than taller 7 x 4 millimeter nodule with slightly increased thr ough transmission which is possibly a fibroadenoma or lymph node. No other focal findings in all 4 quadrants. Scanning of the left axilla is negative for an significant lymphadenopathy. IMPRESSION: Benign-appearing findings. Appropriate follow-up is repeat breast mammogram and ultrasound in 6 months. The patient was informed of the findings and follow-up recommendations by myself prior to leaving the department today. BI-RADS Category 3 - 6 month - Probably Benign Finding: Recommend follow-up mammography in 6 months Breast Density - Category C - Heterogeneously dense Breast density Category C or D implies that the patient has dense breast tissue. Dense breast tissue can make it harder to find cancer on a mammogram. Dense breast tissue is also associated with an incr eased risk of breast cancer. This information about the result of the mammogram report was provided to the patient to raise their awareness. Use this report when you speak with the patient about their risks for breast cancer, which includes their family history. At that time, you may recommend additional screening tests (Ultrasoun d or MRI) as these tests may add significant information. A negative radiographic report should not delay biopsy if a dominant or clinically suspicious mass is present. Up to ten percent of cancers are not identified on mammography. A negative report may reinforce clinical impression. Adenosis and dense breasts may obscure an underlying neoplasm. False positive reports average 6 to 10%. Patient will receive a letter notifying them of these results.
== END ==
PROVIDERS: PCP Student in an Organized Health Care Education/Training Program; Visit Provider Student in an Organized Health Care Education/Training Program
DX: R92.8 Other abnormal and inconclusive findings on diagnostic imaging of breast (principal); Z12.31 Encounter for screening mammogram for malignant neoplasm of breast
CPT/HCPCS: 76642; 77061; 77065; G0279

== ENCOUNTER 2024-04-06 04:00 | Emergency (ER) | payer OTHER, BC, SELFPAY ==
[2024-04-06] VITALS (25 sets, daily range): BP systolic 110–138; BP diastolic 83–105; PULSE 72–90; RESP 16–18; TEMP 36.6; O2SAT 93–100
[2024-04-06] MEDS: diphenhydrAMINE 25 MG CAP 50 MG PO (04:29)
[2024-04-06] MEDS: Famotidine 20 MG TAB 40 MG PO (04:29)
[2024-04-06] MEDS: predniSONE 20 MG TAB 60 MG PO (04:30)
--- NOTE | 2024-04-06 04:31 | W.ED.GENAD ---
Discharge Plan Disposition Patient Disposition: Home Condition: Good Discharge Details Clinical Impression: [id number] Primary Care Provider: Catalina Rivera ED Provider: Amanda Chung Home Meds and New Rx's Prescriptions: New prednisone 20 mg tablet 20 mg PO Q12H 4 Days Qty: 8 0RF Rx Instructions: start on 04/07/24 Continued albuterol sulfate [ProAir HFA] 90 mcg/actuation HFA aerosol inhaler 2 puff inhalation Q6H PRN (Reason: shortness of breath or wheezing) Qty: 8.5 1RF Rx Instructions: Trial daily x 2 weeks budesonide-formoterol [Symbicort] 160-4.5 mcg/actuation HFA aerosol inhaler 2 puff inhalation BID Qty: 10.2 1RF (DME) FreeStyle Tavo 2 Sensor Kit See Rx Instructions .Route Qty: 2 6RF Rx Instructions: As directed gabapentin 100 mg capsule 300 mg PO QHS Qty: 360 3RF Rx Instructions: Continue with 100mg qHS (DME) FreeStyle Tavo 2 [place] Misc See Rx Instructions .Route Qty: 1 0RF Rx Instructions: As directed Januvia 50 mg tablet 50 mg PO DAILY Qty: 90 3RF Rx Instructions: Continue (started by MD PCP) Myrbetriq 25 mg tablet extended release 24 hr 25 mg PO DAILY Qty: 90 3RF Jardiance 10 mg tablet 10 mg PO QAM Qty: 90 3RF Rx Instructions: Continue (tolerated despite lactose sens) acetaminophen 500 mg Tablet 500 mg PO Q6H PRN Discharge Instructions Instructions: Angioedema (DC) Additional Instructions: Diphendydramine (benadyrl) over the counter, 50mg every 4-6 hours as needed. Prednisone 20mg every 12 hours starting tomorrow, for 4 days. Call your primary care doctor today to schedule an appointment to followup on your visit here. Return to the emergency department for new or worsening symptoms including if you feel your lips swelling again, tongue swelling, difficultly breathing, chest pain, vomiting, or if you have any other concerns. Stand Alone Forms: Work Release Referrals: Catalina Rivera DO [Primary Care Provider] - HPI General Mode of arrival: ambulatory. Date/Time Provider Initiated Documentation: 04/06/24 04:05. Limitations to Documentation: no limitations. Information obtained by: patient. HPI Narrative: 68yo F with hx environmental allergies presenting with urticaria for the past 12 hours. Exposed to new [place] yesterday afternoon, shortly thereafter began to break out in hives. Initially improved with benadryl. Woke this morning and again noted hives and severe itching, now with some swelling to her lower lip. Does not feel like anything else in her mouth is swollen. No difficulty breathing. No change in her voice. No chest pain, wheezing, shortness of breath, lightheadedness, nausea, vomiting, diarrhea, abdominal pain, or other concerns. Related Data Home Medications ?Medication ?Instructions ?Recorded ?Confirmed acetaminophen 500 mg tablet 500 mg PO Q6H PRN 08/05/21 04/06/24 albuterol sulfate 90 mcg/actuation 2 puff inhalation Q6H PRN 08/17/22 04/06/24 aerosol inhaler (ProAir HFA) shortness of breath or wheezing #8.5 grams budesonide-formoterol HFA 160 2 puff inhalation BID #10.2 grams 08/17/22 04/06/24 mcg-4.5 mcg/actuation aerosol inhaler (Symbicort) flash glucose sensor (FreeStyle #2 ea 07/04/23 04/06/24 Tavo 2 Sensor kit) gabapentin 100 mg capsule 300 mg (3 x 100 mg) PO QHS #360 08/15/23 04/06/24 caps flash glucose scanning reader #1 ea 10/21/23 04/06/24 (FreeStyle Tavo 2 [place]) sitagliptin phosphate 50 mg tablet 50 mg PO DAILY #90 tabs 12/03/23 04/06/24 (Januvia) mirabegron 25 mg tablet,extended 25 mg PO DAILY #90 tabs 12/10/23 04/06/24 release 24 hr (Myrbetriq) empagliflozin 10 mg tablet 10 mg PO QAM #90 tabs 01/30/24 04/06/24 (Jardiance) prednisone 20 mg tablet 20 mg PO Q12H 4 days #8 tabs 04/06/24 Previous Rx's ?Medication ?Instructions ?Recorded albuterol sulfate 90 mcg/actuation 2 puff inhalation Q6H PRN 08/17/22 aerosol inhaler (ProAir HFA) shortness of breath or wheezing #8.5 grams budesonide-formoterol HFA 160 2 puff inhalation BID #10.2 grams 08/17/22 mcg-4.5 mcg/actuation aerosol inhaler (Symbicort) flash glucose sensor (FreeStyle #2 ea 07/04/23 Tavo 2 Sensor kit) gabapentin 100 mg capsule 300 mg (3 x 100 mg) PO QHS #360 08/15/23 caps flash glucose scanning reader #1 ea 10/21/23 (FreeStyle Tavo 2 [place]) sitagliptin phosphate 50 mg tablet 50 mg PO DAILY #90 tabs 12/03/23 (Januvia) mirabegron 25 mg tablet,extended 25 mg PO DAILY #90 tabs 12/10/23 release 24 hr (Myrbetriq) empagliflozin 10 mg tablet 10 mg PO QAM #90 tabs 01/30/24 (Jardiance) prednisone 20 mg tablet 20 mg PO Q12H 4 days #8 tabs 04/06/24 Allergies Allergy/AdvReac Type Severity Reaction Status Date / Time Bleach (Sodium Hypochlorite) Allergy Unknown shortness Verified 04/06/24 04:10 of breath ciprofloxacin Allergy Unknown dry mouth Verified 04/06/24 04:10 lisinopril Allergy Unknown cough Verified 04/06/24 04:10 metformin AdvReac Intermediate Diarrhea Verified 04/06/24 04:10 gabapentin AdvReac Mild Leg pain Verified 04/06/24 04:10 lactose AdvReac Unknown gi Verified 04/06/24 04:10 discomfort General Stated Complaint: Allergic MICHI: 3 Review of Systems Narrative: see HPI Exam Narrative Exam Narrative: General: Alert, well appearing, well nourished, in no acute distress. Head: Normocephalic, atraumatic Neck: Trachea midline, ?Neck supple. Skin: Diffuse urticaria. ENT: ?MMM.? No oropharygeal lesions or exudate. Lower lip ever so slightly swollen compared to upper, noticeable only with palpation. No tongue, uvular, or other intraoral swelling. Cardiac: ?RRR, no murmurs appreciated Resp: No respiratory distress. CTAB. No stridor. Normal phonation. Abd: ?Soft, non-distended, nontender Extremities: ?No deformities.? No peripheral edema. Neurologic: GCS 15. ? Moves all extremities freely against gravity Course Vital Signs Vital signs: Vital Signs Temperature 36.6 C 04/06/24 04:03 Pulse 90 04/06/24 04:03 Respiratory Rate 16 04/06/24 04:03 Blood Pressure 110/91 H 04/06/24 04:03 Pulse Oximetry 100 04/06/24 04:03 Temperature 36.6 C 04/06/24 04:03 Temperature Source Temporal Artery Scan 04/06/24 04:03 Pulse 90 04/06/24 04:03 Respiratory Rate 16 04/06/24 04:03 Respiratory Effort Normal 04/06/24 04:08 Respiratory Pattern Normal 04/06/24 04:08 Blood Pressure 110/91 H 04/06/24 04:03 Blood Pressure Position Sitting 04/06/24 04:03 Pulse Oximetry 100 04/06/24 04:03 Oxygen Delivery Method Room Air 04/06/24 04:03 Oxygen Flow Rate 0 04/06/24 04:03 Pain Level 0 04/06/24 04:03 Medical Decision Making 68yo F with hx environmental allergies presenting with urticaria for the past 12 hours after being exposed to new calvillo yesterday afternoon. No medication changes recently or other new exposures. Initially improved with benadryl, however woke this morning as was worth and now feels some lower lip swelling. No respiratory or GI symptoms. Vital signs reassuring on arrival. On exam she has diffuse urticaria as well as lower lip which is ever so slightly swollen compared to upper, noticeable only with palpation. No tongue, uvular, or other intraoral swelling, no stridor or vocal changes, no respiratory distress. Not suggestive of anaphylxis. Does potentially have mild histamine-mediated angioedema. Will treat with Benadryl, famotidine, prednisone. No indication for epinephrine or airway intervention at this time. On reassessment pt appears to be sleeping comfortably. Will plan to observe in the ED for approximately 3-4 hours; if symptoms remain controlled will discharge home with short course of prednisone. On subsequent reassessment patient reports feeling back to normal. Hives resolved. No itching. Reassuring vital signs and physical exam. Lip feels normal to her, no edema palpable on my exam. Discharged home to followup with PCP; discharge instructions and return precautions were reviewed with patient who verbalized understanding. All questions were answered and she is in full agreement with the plan. 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 please pull CT, [facility], [place], [place], 02/[address] of the head (Acute) for MRI .. please pull CT, [facility], [place], [place], 02/2022 Brain lesion (Acute) Lat aspect, rt middle cranial fossa, probable meningioma .. suggest MRI .. per CT/Head-Neck ([facility])(02/2022) Lesion of tongue (Acute) hyper-dense tissue, below tongue, lymphoid tissue (?) [ ] suggest direct visualization .. per CT/Neck ([facility])(02/2022) At risk for osteoporosis (Acute) Osteopenia per 2018 DEXA ([facility]). BUT: No smkg, no steroids. PPI? Neck mass (Acute) @ [facility] (see US, CT from MD, -02/2022) Neuropathy in diabetes (Acute) Foot pain, mostly toes, seems to be a neuropathy . presumed 2' DM. Alcon trial helping (01/2020). Hepatic lesion (Acute) TWO: 14mm, 11mm (~ hemangioma).. Incidental finding during abd CT (urogram protocol) for Hx micro hematuria. 08/2019 MRI of the liver: Imaging consistent with hemangioma. Follow-up CT of liver recommended in 6-12mos. Noncontrast CT: peripheral nodular enhancing lesion of right hepatic lobe near the dome of the liver measuring up to about 16 millimeters in diameter ... appearance of a hemangioma. Note is also made of a slightly heterogeneous, well-circumscribed mass of the inferior medial portion of the right hepatic lobe measuring up to about 14 millimeters in diameter, this shows intermediate attenuation of roughly 35 Hounsfield units and does not appear to enhance significantly. Findings as described are indeterminate, solid hepatic neoplasm not excluded. Findings are not suggestive of hemangioma. Additional evaluation with hepatic protocol MRI recommended for further evaluation. MRI (08/28/19): Findings consistent with benign disease for multiple hepatic lesions as described. Follow-up hepatic CT recommended in 6-12 months to document stability of the 14 millimeter inferior right lobe hepatic lesion. Mixed stress and urge urinary incontinence (Acute) improved w/ myrbetriq Interstitial cystitis (Acute) improved w/ myrbetriq Hallux valgus (acquired), right foot (Acute) 03/11/19-Dr. Blankenship pre-fabricated orthotics Hallux valgus (acquired), left foot (Acute) 03/11/19-. 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 Bunion pain .. with Hx plantar fasciitis. Vitamin D deficiency (Acute) CTS (carpal tunnel syndrome) (Acute) Essential hypertension (Acute) DJD (degenerative joint disease) (Chronic) Diabetes mellitus, type II (Chronic) Hx elevated sugars. Trial diet control. 01/2020: A1C today remains at 7.0% .. last checked on 09/24/19. She is ready for Rx. Medical History (Updated 04/06/24 @ 05:58 by Amanda Chung MD) Shingles July 2023 Stress due to illness of family member , 2023..Cancer-free (2022).. undergoing chemo (#6, September 2021).. doing well. COVID-19 SARS-CoV-2 positive (~08/02/21) Venereal disease screening Syphilis (RPR/Blood), Gonorhea (Urine [ ] ) .. for immigration Bilateral plantar fasciitis (01/12/21) Luke Bowden DPM Left flank pain Bunion, left foot Acute on chronic, raw/red/tender 10/2019 Hematuria Mofatemeh Lopez , 03/2021. Sister () from breast cancer; working to keep mind off sadness. Family in [place]; she is here with room in friend's house. Malignant neoplasm of unspecified lower limb 03/11/19-. Derm referral Adjustment disorder Female climacteric state Atrophic vaginitis Thrombosed external hemorrhoids Surgical History History of removal of cyst Right Breast x2 History of cholecystectomy History of dilation and curettage History of breast biopsy Family History Father Heart attack Asthma Diabetes Mother Stroke Hypertension Rheumatoid arthritis Son Asthma only as child Son No problems noted. Brother Heart attack Brother Diabetes Asthma Sister Breast cancer Sister Brain cancer Sister Leukemia Sister Hypertension Hyperlipidemia Social History Smoking/Tobacco Use Status: Never Second Hand Exposure: No Smoking risk assessment performed?: Yes Alcohol Intake: never Drug use: Never Adopted: No Caregiver/Support person: No Foster care: No Household members: friend(s) and other Details: [facility]. Children live in [place] Housing: house Number of Children: 3 number of grandchildren: 0 Communication Needs: None Education Level: college Details: Bachelor's Degree Do you need help understanding health information?: Never current occupation: RN Pets and animals: Yes (1) Pets and animals: dog(s) Sexually active: No Do you think of yourself as: straight/heterosexual Current gender identity: female What is your relationship status?: How often do you talk on the phone with friends or family?: three or more times per week How often do you get together with friends or relatives?: three or more times per week Do you belong to any clubs or organized social groups?: yes Panel score (0-1 are the most socially isolated patients): 3 What type of physical activity do you participate in: aerobic and other Details: Strengthening; Cassandra (online) Duration: 15-30 minutes/day Frequency: daily Radha/Pentecostalism: Restorationism Special radha needs: Yes Seatbelt use: always Helmet use: Yes Helmet use: sometimes Drive intox or ride w/intox dedicated regional driver: No Working smoke detector in home: Yes Fire extinguisher in home: Yes Carbon monox detector in home: Yes Do you feel safe at home: Yes Do you feel safe in your relationship?: Yes Victim of physical abuse: No Victim of emotional abuse: No Victim of sexual abuse: No Additional Social history: Pt has lived in different countries and different states 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
== END 2024-04-06 07:18 | disposition home or self-care (01) ==
PROVIDERS: Emergency Provider Student in an Organized Health Care Education/Training Program; PCP Student in an Organized Health Care Education/Training Program
DX: T78.3XXA Angioneurotic edema, initial encounter (principal)
CPT/HCPCS: 99283; J7512

== ENCOUNTER 2024-05-07 01:11 | Outpatient (CLI) | payer BC, SELFPAY ==
--- NOTE | 2024-05-07 07:09 | DI.US_ITS ---
Exam(s) MG MAMMO DIAGNOSTIC UNI US BREAST LT LIMITED EXAM: MG MAMMO DIAGNOSTIC UNI and U/S breast LT limited CLINICAL HISTORY: f/u abnl mammo,r92.8,microcysts lt. TECHNIQUE: Craniocaudal and mediolateral oblique Full Field Digital Mammography views of the left br east with Computer Aided Diagnosis followed by Tomosynthesis and left breast ultrasound. COMPARISON: Comparison is made with prior examinations. FINDINGS: Mammography/Tomosynthesis: Masses/Architectural Distortion: There again seen well-circumscribed nodules in the upper outer quadr ant of the left breast which appears stable. No new nodules are seen. No areas of architectural dis tortion are seen. Microcalcifictions: No suspicious pleomorphic-type are seen. Skin Thickening/Nipple Retraction: None. Limited left breast US: Echotexture: Normal appearance of the glandular tissue. Shadowing: No suspicious foci. Cyst: Multiple cysts are seen scattered within the left breast. No suspicious cysts are seen. Solid lesions: None seen. Ductal dilation: None. IMPRESSION: 1. No evidence of malignancy is noted. 2. Unless there is more urgent need, follow-up screening mammography is recommended, as per [employer] guidelines. 3. The findings were discussed with the patient on the date of the examination. BI-RADS Category 2 - Benign Findings Breast Density - Category C - Heterogeneously dense Breast density Category C or D implies that the patient has dense breast tissue. Dense breast tissue can make it harder to find cancer on a mammogram. Dense breast tissue is also associated with an incr eased risk of breast cancer. This information about the result of the mammogram report was provided to the patient to raise their awareness. Use this report when you speak with the patient about their risks for breast cancer, which includes their family history. At that time, you may recommend additional screening tests (Ultrasoun d or MRI) as these tests may add significant information. A negative radiographic report should not delay biopsy if a dominant or clinically suspicious mass is present. Up to ten percent of cancers are not identified on mammography. A negative report may reinforce clinical impression. Adenosis and dense breasts may obscure an underlying neoplasm. False positive reports average 6 to 10%. Patient will receive a letter notifying them of these results.
== END 2024-05-07 01:31 ==
LOC: DI 01:11
PROVIDERS: PCP Student in an Organized Health Care Education/Training Program; Visit Provider Nurse Practitioner
DX: R92.8 Other abnormal and inconclusive findings on diagnostic imaging of breast (principal); Z12.31 Encounter for screening mammogram for malignant neoplasm of breast
CPT/HCPCS: 76642; 77061; 77065; G0279

== ENCOUNTER 2024-08-26 00:46 | Outpatient (CLI) | payer OTHER, SELFPAY ==
--- NOTE | 2024-08-26 13:29 | DI.RAD_ITS ---
Exam(s) XR FOOT LT COMPLETE EXAM: XR FOOT LT COMPLETE CLINICAL HISTORY: Left foot pain,m79.672. TECHNIQUE: 2D digital imaging was performed of the left foot. Three images were obtained. AP, obli que and lateral views were obtained. COMPARISON: CR XR FOOT LT COMPLETE from 02/20/2023 FINDINGS: BONES: No acute fracture is present. No bony destructive lesion is seen. There is an enthesophyte at the posterior calcaneus. There is a small plantar calcaneal spur. JOINTS: No dislocation present. There is a hallux valgus deformity. SOFT TISSUE: Normal. IMPRESSION: Hallux valgus deformity and heel spurs. DATA REPOSITORY: RADIATION DOSE DELIVERED:
--- NOTE | 2024-08-26 13:29 | DI.RAD_ITS ---
Exam(s) XR FOOT RT COMPLETE EXAM: XR FOOT RT COMPLETE CLINICAL HISTORY: Right foot pain,m79.671. TECHNIQUE: 2D digital imaging was performed of the right foot. Three images were obtained. AP, obl ique and lateral views were obtained. COMPARISON: CR XR FOOT RT COMPLETE from 02/20/2023 FINDINGS: BONES: No acute fracture is present. No bony destructive lesion is seen. There is an enthesophyte at the posterior calcaneus. There is a moderate-sized plantar calcaneal spur. JOINTS: No dislocation present. There is again seen a mild hallux valgus deformity. SOFT TISSUE: Normal. IMPRESSION: Hallux valgus and heel spurs. DATA REPOSITORY: RADIATION DOSE DELIVERED:
== END 2024-08-26 01:06 ==
PROVIDERS: PCP Family Medicine; Visit Provider Podiatrist
DX: M79.671 Pain in right foot (principal); M79.672 Pain in left foot; M20.22 Hallux rigidus, left foot; M20.21 Hallux rigidus, right foot
CPT/HCPCS: 73630

== ENCOUNTER 2024-10-23 09:20 | Outpatient (CLI) | payer OTHER, SELFPAY ==
[2024-10-23 09:27] LABS: HCT 43.8 % (36.0-46.0); HGB 14.1 g/dL (11.2-15.7)
[2024-10-23 11:04] LABS: ALT 32 U/L (14-59); AST 23 U/L (15-37); Albumin 3.5 g/dL (3.4-5.0); Alkaline Phosphatase 69 U/L (46-116); Anion Gap 6.8 mmol/L (3-11); BUN 21 mg/dL (7-18); Bilirubin, Total 0.6 mg/dL (0.2-1.0); CO2 33.2 mmol/L (21.0-32.0); Calcium 9.3 mg/dL (8.5-10.1); Calculated LDL 150 mg/dL (<100); Chloride 101 mmol/L (98-107); Cholesterol 224 mg/dL (<200); Estimated GFR 61.75 (mL/min/1.73m2); Glucose 132 mg/dL (74-106); HDL Cholesterol 49 mg/dL (>or=50); Potassium 3.6 mmol/L (3.5-5.1); Sodium 141 mmol/L (136-145); Total Protein 7.8 g/dL (6.4-8.2); Triglyceride 128 mg/dL (<150); Vitamin D 25 Total 73 ng/mL (30-100)
[2024-10-26 13:20] LABS: Alternaria Tenuis IgE <0.10 kU/L (<0.70); Aspergillus Fumigatus IgE <0.10 kU/L (<0.70); Bermuda Grass IgE <0.10 kU/L (<0.70); Cat Epithelium IgE <0.10 kU/L (<0.70); Cladosporium IgE <0.10 kU/L (<0.70); D Farinae IgE <0.10 kU/L (<0.70); D Pteronyssinus IgE <0.10 kU/L (<0.70); Elm IgE <0.10 kU/L (<0.70); Epicoccum purpurascens IgE <0.10 kU/L (<0.70); Milk, IgE <0.10 kU/L (<0.70); Penicillium chrysogenum IgE <0.10 kU/L (<0.70); Silver Birch IgE 0.53 kU/L (<0.70)
[2024-10-26 13:26] LABS: Lamb's Quarter IgE <0.10 kU/L (<0.70); Oak IgE <0.10 kU/L (<0.70); Raspberry, IgE <0.10 kU/L (<0.70); Short Ragweed IgE <0.10 kU/L (<0.70); Strawberry, IgE <0.10 kU/L (<0.70); Timothy Grass IgE <0.10 kU/L (<0.70)
[2024-10-26 13:35] LABS: Wormwood IgE <0.10 kU/L (<0.70)
[2024-10-27 12:13] LABS: Cocklebur IgE <0.10 kU/L (<0.70); Cockroach IgE <0.10 kU/L (<0.70); Cottonwood IgE <0.10 kU/L (<0.70); Dog Dander IgE <0.10 kU/L (<0.70); Eastern Sycamore IgE <0.10 kU/L (<0.70); Fusarium moniliforme, IgE <0.10 kU/L (<0.70); Giant Ragweed IgE <0.10 kU/L (<0.70); Pineapple, IgE <0.10 kU/L (<0.70); Red Sorrel IgE <0.10 kU/L (<0.70); Rough Pigweed IgE <0.10 kU/L (<0.70); Stemphyllium IgE <0.10 kU/L (<0.70); Walnut Tree IgE <0.10 kU/L (<0.70)
[2024-10-27 12:55] LABS: Cherry IgE <0.10 kU/L (<0.70)
[2024-10-30 17:41] LABS: CLASS 0; Cedar Red IgE <0.10 kU/L (<0.35); Rhodotorula IgE <0.35 kU/L (<0.35)
== END 2024-10-23 09:21 | disposition home or self-care (01) ==
LOC: LBO 09:20
PROVIDERS: Student in an Organized Health Care Education/Training Program; PCP Family Medicine; Visit Provider Physician Assistant
DX: Z87.892 Personal history of anaphylaxis (principal); R06.00 Dyspnea, unspecified; Z91.09 Other allergy status, other than to drugs and biological substances; L27.2 Dermatitis due to ingested food; R30.0 Dysuria; R31.9 Hematuria, unspecified; R30.9 Painful micturition, unspecified; R35.0 Frequency of micturition; I10 Essential (primary) hypertension; E11.9 Type 2 diabetes mellitus without complications; E55.9 Vitamin D deficiency, unspecified; Z13.220 Encounter for screening for lipoid disorders; K90.9 Intestinal malabsorption, unspecified
CPT/HCPCS: 36415; 80053; 80061; 82306; 86003; 84443; 85014; 85018; 87086